=== PATIENT | female | born 1945 | race Caucasian/White ===

== ENCOUNTER 2016-04-17 08:38 | Outpatient (CLI) | payer MEDICARE, OTHER ==
[2016-04-17 12:56] LABS: #Basophils 0.1 thou/uL (0.0-0.2); #Eosinphils 0.3 thou/uL (0.0-0.7); #Lymphocytes 2.1 thou/uL (1.20-3.40); #Monocytes 0.4 thou/uL (0.11-0.59); #Neutrophils 3.2 thou/uL (1.40-6.50); %Basophils 1.1 % (0.0-1.0); %Eosinophils 4.9 % (0.0-10.0); %Lymphocytes 34.2 % (21.0-51.0); %Monocytes 6.3 % (0.0-10.0); Hematocrit 43.6 % (36.0-47.0); Mean Platelet Volume 5.8 fL (7.4-10.4); Red Blood Cell (RBC) Count 4.87 mill/uL (4.20-5.40)
[2016-04-17 12:57] LABS: ALT (SGPT) 20 U/L (0-55); AST (SGOT) 17 U/L (5-34); Alkaline Phosphatase 74 U/L (40-150); Anion Gap 13 mmol/L (10-20); BUN (Urea Nitrogen) 9 mg/dL (9.8-20.1); Bilirubin, Direct 0.2 mg/dL (0.1-0.3); Bilirubin, Total 0.5 mg/dL (0.2-1.2); Calc. Creatinine Clearance 0 mL/min (70-130); Calcium 9.5 mg/dL (7.8-10.44); Carbon Dioxide 27 mmol/L (23-31); Chloride 107 mmol/L (98-107); Estimated GFR-MDRD 69; LDL Cholesterol, Calculated 96 mg/dL; Protein, Total 6.4 g/dL (5.8-8.1)
[2016-04-17 13:41] LABS: Hemoglobin A1c 5.8 % (4.0-6.0)
== END 2016-04-17 08:39 ==
LOC: NAVSJIPCSP 08:38
PROVIDERS: ATTEND Family Medicine
DX: J45.909 Unspecified asthma, uncomplicated (principal); Z79.899 Other long term (current) drug therapy; E78.5 Hyperlipidemia, unspecified; R53.83 Other fatigue
CPT/HCPCS: 36415; 80048; 80061; 80076; 83036; 84443; 85025

== ENCOUNTER 2016-10-04 09:08 | Outpatient (CLI) | payer MEDICARE, OTHER ==
[2016-10-04 14:13] LABS: #Eosinphils 0.3 thou/uL (0.0-0.7); #Lymphocytes 1.4 thou/uL (1.20-3.40); #Monocytes 0.5 thou/uL (0.11-0.59); %Basophils 0.7 % (0.0-1.0); %Eosinophils 4.9 % (0.0-10.0); %Lymphocytes 27.1 % (21.0-51.0); %Monocytes 8.9 % (0.0-10.0); %Neutrophils 58.4 % (42.0-75.0); Hemoglobin 12.8 g/dL (12.0-16.0); Mean Corpuscular HGB CONC 32.2 g/dL (32.0-36.0); Mean Corpuscular Hemoglobin 28.5 pg (27.0-31.0); Mean Corpuscular Volume 88.4 fl (81.0-99.0); Mean Platelet Volume 6.2 fL (7.4-10.4); Platelet Count 227 thou/uL (130-400); RBC Distribution Width 12.6 % (11.5-14.5); Red Blood Cell (RBC) Count 4.51 mill/uL (4.20-5.40); White Blood Cell (WBC) Count 5.2 thou/uL (4.8-10.8)
[2016-10-04 17:53] LABS: ALT (SGPT) 15 U/L (8-55); AST (SGOT) 14 U/L (5-34); Albumin 3.9 g/dL (3.4-4.8); Alkaline Phosphatase 74 U/L (40-150); Anion Gap 14 mmol/L (10-20); BUN (Urea Nitrogen) 9 mg/dL (9.8-20.1); Bilirubin, Direct 0.3 mg/dL (0.1-0.3); Bilirubin, Total 0.6 mg/dL (0.2-1.2); Calc. Creatinine Clearance 0 mL/min (70-130); Calcium 9.2 mg/dL (7.8-10.44); Carbon Dioxide 28 mmol/L (23-31); Cardiac Risk 3.4 (Less than 4.5); Chloride 105 mmol/L (98-107); Cholesterol 146 mg/dl (< 200 Desired); Estimated GFR-MDRD 76; Glucose 99 mg/dL (83-110); HDL Cholesterol 43 mg/dL (>60 Neg Risk); Potassium 4.1 mmol/L (3.5-5.1); Protein, Total 6.1 g/dL (6.0-8.3); Sodium 143 mmol/L (136-145); Triglycerides Less than 9 mg/dL (Less than 150)
[2016-10-04 18:33] LABS: Hemoglobin A1c 5.8 % (4.0-6.0)
== END 2016-10-04 09:09 | disposition home or self-care (01) ==
LOC: NAVSJIPCSP 09:08
PROVIDERS: ATTEND Family Medicine
DX: J45.909 Unspecified asthma, uncomplicated (principal); E03.9 Hypothyroidism, unspecified; E78.5 Hyperlipidemia, unspecified; R53.83 Other fatigue; Z79.899 Other long term (current) drug therapy
CPT/HCPCS: 36415; 80048; 80061; 80076; 83036; 84443; 85025

== ENCOUNTER 2017-12-25 11:51 | Emergency (ER) | payer MEDICARE, OTHER ==
[2017-12-25] MEDS ORDERED: Adacel (T-DAP) 0.5 ML VIAL ONE (12:20)
[2017-12-25] MEDS ORDERED: Lidocaine 1% (PF) 30 ML VIAL ONE (12:51)
== END 2017-12-25 13:35 | disposition home or self-care (01) ==
LOC: NAV ERS 11:51
DX: S61.411A Laceration without foreign body of right hand, initial encounter (principal); S81.811A Laceration without foreign body, right lower leg, initial encounter; Z23 Encounter for immunization; E03.9 Hypothyroidism, unspecified; E78.00 Pure hypercholesterolemia, unspecified; F41.9 Anxiety disorder, unspecified; Z79.899 Other long term (current) drug therapy; W26.8XXA Contact with other sharp object(s), not elsewhere classified, initial encounter
CPT/HCPCS: 12001; 90471; 90715; J2001

== ENCOUNTER 2021-08-30 11:19 | Outpatient (CLI) | payer MEDICARE, OTHER | END 2021-08-30 11:20 | disposition home or self-care (01) | LOC: NAV RAD 11:19 | PROVIDERS: ATTEND Family Medicine | DX: R05.9 Cough, unspecified (principal) | CPT/HCPCS: 71046 ==